=== PATIENT | male | born 1980 | race American Indian/Alaskan Native ===

== ENCOUNTER 2019-12-18 07:45 | Emergency (ER) | payer SELFPAY ==
[2019-12-18] MEDS ORDERED: ONDANSETRON 4 MG/2 ML INJ IV ONE (09:26)
[2019-12-18] MEDS ORDERED: MORPHINE 4 MG/1 ML INJ IV ONE (09:26)
[2019-12-18] MEDS ORDERED: SODIUM CHLORIDE 0.9% 1000 ML 1,000 ML IV ONE (09:26)
[2019-12-18] MEDS ORDERED: dexAMETHasone 20 MG/5 ML VIAL IV ONE (09:26)
[2019-12-18 10:09] LABS: Basophils % (Auto) 0.4 % (0.0-1.8); Eosinophils # (Auto) 0.1 K/mm3 (0.0-0.4); Eosinophils % (Auto) 0.7 % (0.0-4.3); Hematocrit 44.7 % (35.5-45.6); Hemoglobin 15.3 gm/dl (11.8-15.2); Lymphocytes # (Auto) 1.6 K/mm3 (1.2-5.4); Lymphocytes % (Auto) 13.6 % (13.4-35.0); Mean Corpuscular HGB Conc 34 % (32-34); Mean Corpuscular Volume 100 fl (84-94); Monocytes # (Auto) 1.2 K/mm3 (0.0-0.8); Monocytes % (Auto) 10.3 % (0.0-7.3); Platelet Count 175 K/mm3 (140-440); Red Cell Distribution Width 12.5 % (13.2-15.2)
[2019-12-18 10:32] LABS: BUN/Creatinine Ratio 14; Blood Urea Nitrogen 13 mg/dL (9-20); Calcium 9.9 mg/dL (8.4-10.2); Hemolysis Index 3
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
--- NOTE | 2019-12-18 12:19 | Cat Scan Report ---
CT neck w con INDICATION / CLINICAL INFORMATION: 39 years Male; MAIN: sore throat with tonsillar swelling r/o abscess [id number] 100ml. TECHNIQUE: Contiguous thin cut axial images obtained through the neck following IV contrast. Sagittal and friedman l reconstructions performed by the technologist. All CT scans at this location are performed using CT dose reduction for ALARA by means of automated exposure control. COMPARISON: None available. FINDINGS: MUCOSAL SPACE: There is notable edema hardening resulting from the patient's dental amalgam. However, there is a fluid collection centered within the left peritonsillar soft tissues measuring 1.2 simila r AP by 1.7 cm transverse in greatest dimensions. This finding would be most consistent with a perito nsillar abscess at. There is associated edema extending inferiorly with resulting effacement of the l eft vallecula. There is also mild thickening of the base of the left epiglottis. There is mild narrow ing of the airway at the level of the palatine tonsils. There also appears to be mild edema extending along the left retropharyngeal soft tissues. LYMPH NODES: There is associated reactive lymphadenopathy, most notably within the left jugulodigastr ic region with the largest nodes measuring 1.5 cm in greatest transverse dimension. SALIVARY GLANDS: The visualized parotid and submandibular glands appear to demonstrate symmetric atte nuation without calcification. THYROID GLAND: There is also motion and beam artifact involving the lower neck. However, no dominant lesions are seen within the thyroid gland. PARANASAL SINUSES: Visualized paranasal sinuses and mastoid air cells are essentially clear. SPINE: No significant abnormality of the cervical spine appreciated. VASCULAR STRUCTURES: Vascular structures are grossly normal in appearance. Surrounding soft tissues are otherwise grossly normal. IMPRESSION: 1. There is a 1.2 x 1.7 cm fluid collection within the left palatine soft tissues compatible with per itonsillar abscess and surrounding edema as detailed above. 2. There is associated reactive lymphadenopathy, most notably within the left jugulodigastric region. Signer Name: Timur Hdz MD Signed: 12/18/2019 12:15 PM Workstation Name: [id number]
[2019-12-18 14:30] VITALS: BP 121/72
== END 2019-12-18 16:05 | disposition other institution (70) ==
LOC: ED 07:45
DX: J36 Peritonsillar abscess (principal); J98.8 Other specified respiratory disorders; F17.200 Nicotine dependence, unspecified, uncomplicated
CPT/HCPCS: 36415; 70491; 80048; 85025; 96365; 96375; 99285; J1100; J2270; J2405; J7030; Q9967

== ENCOUNTER 2020-04-22 23:32 | Emergency (ER) | payer SELFPAY ==
[2020-04-22 23:40] VITALS: BP 127/75
--- NOTE | 2020-04-23 00:18 | XRay Report ---
Left ankle 3 views INDICATION: Left ankle pain. IMPRESSION: No fracture or subluxation of the left ankle is identified. Signer Name: Tyler Mast MD Signed: 04/23/2020 12:14 AM Workstation Name: [id number]
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
== END 2020-04-23 01:15 | disposition home or self-care (01) ==
LOC: ED 23:32
DX: S93.492A Sprain of other ligament of left ankle, initial encounter (principal); J45.909 Unspecified asthma, uncomplicated; Z98.890 Other specified postprocedural states; Z79.899 Other long term (current) drug therapy; X58.XXXA Exposure to other specified factors, initial encounter; Y93.01 Activity, walking, marching and hiking; Y92.89 Other specified places as the place of occurrence of the external cause; Y99.8 Other external cause status
CPT/HCPCS: 99284